=== PATIENT | female | born 1980 | race Caucasian/White ===

== ENCOUNTER 2016-10-12 14:11 | Emergency (ER) | payer SELFPAY ==
[~2016-10-12] VITALS: Ht 162.6 cm; Wt 77.1 kg
[2016-10-12 14:26] VITALS: BP 130/67
== END 2016-10-12 14:45 | disposition home or self-care (01) ==
LOC: ER 14:26
DX: L02.01 Cutaneous abscess of face (principal); L03.211 Cellulitis of face; F17.200 Nicotine dependence, unspecified, uncomplicated
CPT/HCPCS: A4606; Z7610

== ENCOUNTER 2017-04-15 17:47 | Emergency (ER) | payer MEDICAID ==
[~2017-04-15] VITALS: Ht 160 cm; Wt 65.8 kg
[2017-04-15 17:56] VITALS: BP 107/75
== END 2017-04-15 19:00 | disposition home or self-care (01) ==
LOC: ER 17:53
DX: H00.015 Hordeolum externum left lower eyelid (principal); F17.200 Nicotine dependence, unspecified, uncomplicated
CPT/HCPCS: 99281; A4606; Z7610; Z7502

== ENCOUNTER 2017-04-26 12:18 | Emergency (ER) | payer MEDICAID ==
[~2017-04-26] VITALS: Ht 160 cm; Wt 65.8 kg
[2017-04-26 12:27] VITALS: BP 121/88
== END 2017-04-26 12:57 | disposition home or self-care (01) ==
LOC: ER 12:20
DX: L02.11 Cutaneous abscess of neck (principal); L02.414 Cutaneous abscess of left upper limb; F17.200 Nicotine dependence, unspecified, uncomplicated
CPT/HCPCS: 99283; A4606; Z7610

== ENCOUNTER 2017-06-14 22:36 | Emergency (ER) | payer SELFPAY ==
--- NOTE | 2017-06-14 22:40 | NUR ---
CALLED PT NAME X3. NO RESPONSE IN WAITING ROOM.
--- NOTE | 2017-06-14 23:00 | NUR ---
CALLED PT NAME X3. NO RESPONSE IN WAITING ROOM.
--- NOTE | 2017-06-14 23:26 | NUR ---
CALLED PT NAME X3. NO RESPONSE. PER ADMITTING PT LEFT.
== END 2017-06-14 23:30 | disposition left against medical advice (07) ==
LOC: ER 22:36
DX: Z53.21 Procedure and treatment not carried out due to patient leaving prior to being seen by health care provider (principal)

== ENCOUNTER 2018-02-24 15:50 | Emergency (ER) | payer MEDICAID ==
[~2018-02-24] VITALS: Ht 160 cm; Wt 71.7 kg
--- NOTE | 2018-02-24 16:10 | NUR ---
PRESENTS TO ER C/O VAGINAL BLEEDING AND PELVIC PAIN SINCE YESTERDAY. PATIENT CRYING AND CRINGING IN PAIN. A/OX 4. BREATHING EVEN AND UNLABORED. NO SOB, NAD, VITALS STABLE. SAFETY AND COMFORT MEASURES IN PLACE. AWAITING MD ORDERS.
--- NOTE | 2018-02-24 16:23 | NUR ---
URINE SAMPLE COLLECTED VIA CLEAN CATCH, AND SENT TO LAB PT PLACED IN ER BED 12
[2018-02-24] MEDS ORDERED: ONDANSETRON HCL/PF 4 MG/2 ML VIAL ONE (16:46)
[2018-02-24] MEDS ORDERED: MORPHINE SULFATE INJ 4 MG/ML DISP.SYRIN ONE (16:47)
--- NOTE | 2018-02-24 16:55 | NUR ---
NEW IV STARTED ON LAC, 18G, BLOOD DRAWN AND SENT TO LAB.
[2018-02-24 16:58] LABS: BASOPHILS # (AUTO) 0.1 /CMM (0.0-0.2); BASOPHILS % (AUTO) 1.4 % (0.0-2.0); EOSINOPHILS % (AUTO) 3.4 % (0.0-6.0); HEMATOCRIT 38 % (33-45); LYMPHOCYTES # (AUTO) 1.7 /CMM (0.8-4.8); LYMPHOCYTES % (AUTO) 35.1 % (20.0-44.0); MEAN CORPUSCULAR HGB CONC 34 g/dl (31.0-36.0); MEAN CORPUSCULAR VOLUME 91 fL (82-100); MONOCYTES # (AUTO) 0.7 /CMM (0.1-1.30); NEUTROPHILS # (AUTO) 2.3 /CMM (1.8-8.9); NEUTROPHILS % (AUTO) 46.1 % (43.0-81.0); PLATELET COUNT (AUTO) 294 /CMM (150-450); RDW COEFFICIENT OF VARIATION 13.1 (11.5-15.0); RED BLOOD CELL COUNT(AUTO) 4.24 MIL/uL (4.0-5.2); WHITE BLOOD COUNT (AUTO) 4.9 K/uL (4.3-11.0)
[2018-02-24] MEDS ORDERED: IV NS 0.9% 1,000 ML BAG IV ONE (17:00)
[2018-02-24] MEDS ORDERED: MORPHINE SULFATE INJ 2 MG/ML DISP.SYRIN IV ONE (17:00)
[2018-02-24] MEDS ORDERED: ONDANSETRON HCL/PF 4 MG/2 ML VIAL IVP ONE (17:00)
--- NOTE | 2018-02-24 17:00 | NUR ---
PATIENT MEDICATED PER MD ORDERS.
[2018-02-24 17:03] LABS: APPEARANCE,URINE CLOUDY (CLEAR); BILIRUBIN,URINE NEGATIVE (NEGATIVE); BLOOD, URINE 3+ Ery/uL (NEGATIVE); COLOR,URINE RED (YELLOW); KETONES,URINE TRACE (NEGATIVE); LEUKOCYTE ESTERASE ,URINE 1+ (NEGATIVE); NITRITE, URINE POSITIVE (NEGATIVE); PH,URINE 6.5 (5.0-8.0); PROTEIN,URINE 3+ mg/dl (NEGATIVE); UGLUCOSE NEGATIVE (NEGATIVE)
[2018-02-24 17:16] LABS: BACTERIA,URINE Many /HPF (None Seen); SQUAMOUS EPITHELIAL CELL,UR Few /HPF (None Seen); WBC,URINE 21-50 /HPF (0-3)
--- NOTE | 2018-02-24 17:20 | NUR ---
US TECH AT BEDSIDE.
[2018-02-24 17:22] LABS: CALCIUM, SERUM 8.3 mg/dL (8.5-10.1); CREATININE 0.9 mg/dL (0.6-1.3); POTASSIUM 4.3 mmol/L (3.5-5.1)
[2018-02-24 18:32] VITALS: BP 122/74
--- NOTE | 2018-02-24 18:33 | NUR ---
IV removed. Catheter intact and site benign. Pressure and 4x4 applied to site. No bleeding noted. Patient discharged to home in stable condition. Written and verbal after care instructions given. Patient verbalizes understanding of instruction.
== END 2018-02-24 18:33 | disposition home or self-care (01) ==
LOC: ER 16:03
DX: N39.0 Urinary tract infection, site not specified (principal); F17.200 Nicotine dependence, unspecified, uncomplicated
CPT/HCPCS: 36415; 76856-TC; 80048-TC; 81000-TC; 84702-TC; 85025-TC; 87086-TC; 87186-TC; A4606; J2270; J2405; J7030; Z7610

== ENCOUNTER 2019-01-25 18:09 | Emergency (ER) | payer MEDICAID, OTHER ==
[~2019-01-25] VITALS: Ht 160 cm; Wt 74.8 kg
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
[2019-01-25] MEDS ORDERED: HYDROCODONE/APAP 5/325MG 1 EACH TABLET ONE (18:46)
--- NOTE | 2019-01-25 18:53 | NUR ---
PATIENT UNABLE TO PROVIDE URINE SAMPLE AT THIS TIME, PATIENT STATED "10 MINS"
[2019-01-25] MEDS ORDERED: HYDROCODONE/APAP 5/325MG 1 EACH TABLET PO ONE (19:00)
--- NOTE | 2019-01-25 19:27 | NUR ---
ENDORSED TO KRIS GUTIERREZ FOR SUNSHINE.
--- NOTE | 2019-01-25 20:44 | NUR ---
PT MEDICALLY CLEARED FOR DISCHARGE/ BOOKING. PT LEFT WITH [employer] OFFICERS. AMBULATORY WITH STEADY GAIT
[2019-01-25 20:46] VITALS: BP 110/74
== END 2019-01-25 20:47 ==
LOC: ER 18:09
DX: S20.221A Contusion of right back wall of thorax, initial encounter (principal); S05.12XA Contusion of eyeball and orbital tissues, left eye, initial encounter; R42 Dizziness and giddiness; R09.89 Other specified symptoms and signs involving the circulatory and respiratory systems; F17.200 Nicotine dependence, unspecified, uncomplicated; Y08.89XA Assault by other specified means, initial encounter; Y93.89 Activity, other specified; Y92.89 Other specified places as the place of occurrence of the external cause; Y99.8 Other external cause status
CPT/HCPCS: 70450; 70486; 71046; 72125; 84703; 99284; L0172

== ENCOUNTER 2019-03-11 07:23 | Emergency (ER) | payer MEDICAID, OTHER ==
[~2019-03-11] VITALS: Ht 160 cm; Wt 68.0 kg
[2019-03-11 07:55] LABS: APPEARANCE,URINE Slightly Cloudy (CLEAR); BILIRUBIN,URINE SMALL (NEGATIVE); BLOOD, URINE Large Ery/uL (NEGATIVE); COLOR,URINE Dark (YELLOW); KETONES,URINE Trace (NEGATIVE); LEUKOCYTE ESTERASE ,URINE Trace (NEGATIVE); NITRITE, URINE Positive (NEGATIVE); PH,URINE 5.5 (5.0-8.0); PROTEIN,URINE 30 mg/dl (NEGATIVE); UGLUCOSE Negative (NEGATIVE); UROBILINOGEN,URINE 0.2 EU/dL (0.2)
[2019-03-11] MEDS ORDERED: IV NS 0.9% 500 ML BAG IV ONE (08:00)
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
[2019-03-11 08:05] LABS: BASOPHILS # (AUTO) 0.1 /CMM (0.0-0.2); BASOPHILS % (AUTO) 2.4 % (0.0-2.0); EOSINOPHILS % (AUTO) 1.3 % (0.0-6.0); HEMATOCRIT 43 % (33-45); HEMOGLOBIN 14.4 g/dL (11.5-14.8); LYMPHOCYTES # (AUTO) 1.2 /CMM (0.8-4.8); LYMPHOCYTES % (AUTO) 20.8 % (20.0-44.0); MEAN CORPUSCULAR HGB CONC 34 g/dl (31.0-36.0); MEAN CORPUSCULAR VOLUME 92 fL (82-100); MONOCYTES # (AUTO) 0.6 /CMM (0.1-1.30); MONOCYTES % (AUTO) 9.9 % (2.0-12.0); NEUTROPHILS # (AUTO) 3.7 /CMM (1.8-8.9); NEUTROPHILS % (AUTO) 65.6 % (43.0-81.0); PLATELET COUNT (AUTO) 292 /CMM (150-450); RED BLOOD CELL COUNT(AUTO) 4.67 MIL/uL (4.0-5.2); WHITE BLOOD COUNT (AUTO) 5.7 K/uL (4.3-11.0)
[2019-03-11 08:11] LABS: CALCIUM, SERUM 8.6 mg/dL (8.5-10.1); POTASSIUM 3.4 mmol/L (3.5-5.1)
[2019-03-11 08:28] LABS: BACTERIA,URINE Many /HPF (None Seen); SQUAMOUS EPITHELIAL CELL,UR Moderate /HPF (None Seen)
[2019-03-11 08:29] LABS: WBC,URINE 0-4 /HPF (0-3)
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
--- NOTE | 2019-03-11 09:12 | NUR ---
HARLEY AT BEDSIDE. [id number] HARLEY BEAVER ([phone]) OFFICER [id number] OFFICER [id number]
--- NOTE | 2019-03-11 09:39 | NUR ---
AMAN AT THE BEDSIDE
[2019-03-11 10:13] VITALS: BP 124/86
--- NOTE | 2019-03-11 10:13 | NUR ---
PT. VERBALIZED UNDERSTANDING OF AFTERCARE INSTRUCTIONS.IV removed. Catheter intact and site benign. Pressure and 4x4 applied to site. No bleeding noted.
== END 2019-03-11 10:15 | disposition home or self-care (01) ==
LOC: ER 07:24
DX: N93.8 Other specified abnormal uterine and vaginal bleeding (principal); S00.12XA Contusion of left eyelid and periocular area, initial encounter; R10.32 Left lower quadrant pain; R10.31 Right lower quadrant pain; F17.200 Nicotine dependence, unspecified, uncomplicated; Y04.0XXA Assault by unarmed brawl or fight, initial encounter; Y93.89 Activity, other specified; Y92.89 Other specified places as the place of occurrence of the external cause; Y99.8 Other external cause status
CPT/HCPCS: 36415; 76856; 80048; 81001; 84702; 85025; 85730; 87077; 87086; 87186; 99284; J7040; 81000-TC

== ENCOUNTER 2019-08-29 19:49 | Emergency (ER) | payer MEDICAID ==
[~2019-08-29] VITALS: Ht 160 cm; Wt 63.5 kg
--- NOTE | 2019-08-29 20:08 | NUR ---
PT AAOX4. AMBULATORY. C/O WANTING A TEST. PT STATED SHE WASNT SURE ABOUT THE TEST SHE HAD AT HOME. AT BEDSIDE
[2019-08-29 20:15] LABS: APPEARANCE,URINE Clear (CLEAR); BILIRUBIN,URINE Negative (NEGATIVE); BLOOD, URINE Negative Ery/uL (NEGATIVE); COLOR,URINE Yellow (YELLOW); KETONES,URINE Negative (NEGATIVE); LEUKOCYTE ESTERASE ,URINE Negative (NEGATIVE); NITRITE, URINE Negative (NEGATIVE); PH,URINE 5.5 (5.0-8.0); PROTEIN,URINE Negative (NEGATIVE); UGLUCOSE Negative (NEGATIVE); UROBILINOGEN,URINE 0.2 EU/dL (0.2)
[2019-08-29 20:58] VITALS: BP 128/78
--- NOTE | 2019-08-29 20:58 | NUR ---
Patient discharged to home in stable condition. Written and verbal after care instructions given. Patient verbalizes understanding of instruction. PT ambulatory with a steady gait.
== END 2019-08-29 20:59 | disposition home or self-care (01) ==
LOC: ER 19:53
DX: R30.0 Dysuria (principal); R11.0 Nausea; R31.9 Hematuria, unspecified; F41.9 Anxiety disorder, unspecified; E11.9 Type 2 diabetes mellitus without complications; F17.200 Nicotine dependence, unspecified, uncomplicated
CPT/HCPCS: 81000-TC; 84703-TC

== ENCOUNTER 2020-02-09 03:40 | Emergency (ER) | payer MEDICAID, OTHER ==
[~2020-02-09] VITALS: Ht 160 cm; Wt 65.8 kg
[2020-02-09 03:46] VITALS: BP 128/86
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
[2020-02-09] MEDS ORDERED: TDAP [DIPH/PERTUSSIS/TET] 0.5 ML VIAL IM ONE ×2 (03:54→04:00)
[2020-02-09] MEDS ORDERED: HYDROCODONE/APAP 5/325MG 1 EACH TABLET ONE (04:58)
[2020-02-09] MEDS ORDERED: HYDROCODONE/APAP 5/325MG 1 EACH TABLET PO ONE (05:00)
--- NOTE | 2020-02-09 05:03 | NUR ---
Patient discharged to PD in stable condition. Written and verbal after care instructions given. Patient verbalizes understanding of instruction.
== END 2020-02-09 05:03 ==
LOC: ER 03:42
DX: S01.81XA Laceration without foreign body of other part of head, initial encounter (principal); E11.9 Type 2 diabetes mellitus without complications; Y04.8XXA Assault by other bodily force, initial encounter; Y93.89 Activity, other specified; Y92.89 Other specified places as the place of occurrence of the external cause; Y99.8 Other external cause status
CPT/HCPCS: 12011; 70450; 70486; 90471; 90715; 99285; A6403